=== PATIENT | female | born 1930 | race Caucasian/White ===

== ENCOUNTER → 2016-11-22 | Outpatient (CLI) | payer MEDICARE ==
[2016-11-22 15:29] VITALS: BP 120/72
== END ==
LOC: MHUC 14:59
PROVIDERS: ATTEND Physician Assistant
DX: H66.002 Acute suppurative otitis media without spontaneous rupture of ear drum, left ear (principal); H10.33 Unspecified acute conjunctivitis, bilateral
CPT/HCPCS: 99213